=== PATIENT | female | born 1985 | race African-American/Black ===

== ENCOUNTER 2019-03-04 16:46 | Observation (INO) | payer MEDICAID ==
[~2019-03-04] VITALS: Ht 162.6 cm; Wt 97.1 kg
[2019-03-04] MEDS ORDERED: ACETAMINOPHEN 325MG TABLET PO NR (17:30)
[2019-03-04] MEDS: LACTATED RINGERS 1,000 ML IV SCH ×2 (17:48→20:08)
[2019-03-04 18:12] LABS: BASOPHILS % 0.1 % (0.0-2.0); EOSINOPHILS % 0.9 % (0.0-5.0); HEMATOCRIT. 36.6 % (36.0-48.0); HEMOGLOBIN. 11.9 g/dL (12.0-16.0); LYMPHOCYTES % 7.6 % (20.0-50.0); MEAN CORPUSCULAR HEMOGLOBIN 25.1 pg (28.0-32.0); MEAN CORPUSCULAR VOLUME 77.7 fL (81.0-99.0); MEAN PLATELET VOLUME 9.4 fl (7.4-10.4); MONOCYTES % 5.3 % (2.0-8.0); NEUTROPHILS % 86.1 % (40.0-76.0); PLATELET 205 x1000/uL (130-400); RED BLOOD CELL COUNT 4.72 mill/uL (4.2-5.4); RED CELL DISTRIBUTION WIDTH 15.5 % (11.6-14.6)
[2019-03-04 18:13] LABS: CHLORIDE 107 mEq/L (98-107)
[2019-03-04 18:53] LABS: CLARITY URINE CLOUDY (CLEAR); COLOR URINE DARK YELLOW (YELLOW); KETONES URINE 3+ (NEGATIVE); LEUKOCYTE ESTERASE URINE NEGATIVE (NEGATIVE); NITRITE URINE NEGATIVE (NEGATIVE); OCCULT BLOOD URINE NEGATIVE (NEGATIVE); PH URINE 5.5 (4.5-8.0); PROTEIN URINE 1+ (NEGATIVE); SPECIFIC GRAVITY URINE 1.032 (1.005-1.030); UROBILINOGEN URINE 0.2 E.U./dL (0.2-1.0)
[2019-03-04] MEDS ORDERED: PREN1TAB78 MT (22:44)
[2019-03-04] MEDS ORDERED: FERR-71 MT (22:44)
== END 2019-03-04 23:05 | disposition home or self-care (01) ==
LOC: 8 EST LDRP 16:46
PROVIDERS: ADMIT Obstetrics & Gynecology; ATTEND Obstetrics & Gynecology
DX: O21.2 Late vomiting of pregnancy (principal); O26.893 Other specified pregnancy related conditions, third trimester; R19.7 Diarrhea, unspecified; R10.9 Unspecified abdominal pain; Z3A.33 33 weeks gestation of pregnancy
CPT/HCPCS: 36415; 80053; 81003; 85025; 96360; 96361; G0378

== ENCOUNTER 2019-03-09 18:51 | Observation (INO) | payer MEDICAID ==
[~2019-03-09 18:51] MED LIST: FERR-71 MT; PREN1TAB78 MT
[2019-03-09 21:08] LABS: CLARITY URINE CLEAR (CLEAR); COLOR URINE YELLOW (YELLOW); KETONES URINE NEGATIVE (NEGATIVE); LEUKOCYTE ESTERASE URINE NEGATIVE (NEGATIVE); NITRITE URINE NEGATIVE (NEGATIVE); OCCULT BLOOD URINE NEGATIVE (NEGATIVE); PH URINE 6.5 (4.5-8.0); PROTEIN URINE NEGATIVE (NEGATIVE); SPECIFIC GRAVITY URINE 1.015 (1.005-1.030); UROBILINOGEN URINE 0.2 E.U./dL (0.2-1.0)
[2019-03-09 21:08] LABS: CHLORIDE 111 mEq/L (98-107)
[2019-03-09 21:10] LABS: BASOPHILS % 0.3 % (0.0-2.0); EOSINOPHILS % 2.2 % (0.0-5.0); HEMATOCRIT. 34.3 % (36.0-48.0); HEMOGLOBIN. 10.9 g/dL (12.0-16.0); LYMPHOCYTES % 21.6 % (20.0-50.0); MEAN CORPUSCULAR HEMOGLOBIN 24.8 pg (28.0-32.0); MEAN CORPUSCULAR VOLUME 77.9 fL (81.0-99.0); MEAN PLATELET VOLUME 9.1 fl (7.4-10.4); MONOCYTES % 7.8 % (2.0-8.0); NEUTROPHILS % 68.1 % (40.0-76.0); PLATELET 191 x1000/uL (130-400); RED CELL DISTRIBUTION WIDTH 15.5 % (11.6-14.6)
[2019-03-09 21:15] LABS: D-DIMER 0.71 mg/L FEU (<0.50); INR 0.9; PARTIAL THROMBOPLASTIN TIME 32.3 sec (23.4-31.0)
[2019-03-09] MEDS ORDERED: RANI150T7 MT (22:20)
== END 2019-03-09 22:40 | disposition home or self-care (01) ==
LOC: 8 EST LDRP 18:51
PROVIDERS: ADMIT Obstetrics & Gynecology; ATTEND Obstetrics & Gynecology
DX: O26.893 Other specified pregnancy related conditions, third trimester (principal); M25.552 Pain in left hip; M25.551 Pain in right hip; M79.605 Pain in left leg; M79.604 Pain in right leg; M79.602 Pain in left arm; M79.601 Pain in right arm; M79.642 Pain in left hand; M79.641 Pain in right hand; M25.572 Pain in left ankle and joints of left foot; M25.571 Pain in right ankle and joints of right foot; M79.10 Myalgia, unspecified site; Z3A.33 33 weeks gestation of pregnancy
CPT/HCPCS: 36415; 80053; 81003; 84550; 85025; 85379; 85384; 85610; 85730; 99281; G0378

== ENCOUNTER 2019-03-09 23:10 | Emergency (ER) | payer MEDICAID ==
[~2019-03-09] VITALS: Ht 162.6 cm; Wt 95.0 kg
[~2019-03-09 23:10] MED LIST changes: +RANI150T7 MT
[2019-03-10] MEDS ORDERED: SODIUM CHLORIDE 0.9% 1,000 ML IV ONE (00:14)
[2019-03-10] MEDS ORDERED: ONDANSETRON HCL 4MG/2ML INJ IV STA (00:28)
[2019-03-10] MEDS ORDERED: MORPHINE SULFATE 4 MG/ML CPJ (NOT FOR IM USE) IV STA (00:28)
[2019-03-10 02:01] LABS: BASOPHILS % 0.9 % (0.0-2.0); EOSINOPHILS % 2.5 % (0.0-5.0); HEMATOCRIT. 31.8 % (36.0-48.0); HEMOGLOBIN. 10.2 g/dL (12.0-16.0); LYMPHOCYTES % 21.9 % (20.0-50.0); MEAN CORPUSCULAR HEMOGLOBIN 25.3 pg (28.0-32.0); MEAN CORPUSCULAR VOLUME 78.7 fL (81.0-99.0); MEAN PLATELET VOLUME 8.8 fl (7.4-10.4); MONOCYTES % 6.6 % (2.0-8.0); NEUTROPHILS % 68.1 % (40.0-76.0); PLATELET 189 x1000/uL (130-400); RED BLOOD CELL COUNT 4.04 mill/uL (4.2-5.4); RED CELL DISTRIBUTION WIDTH 15.3 % (11.6-14.6)
[2019-03-10 02:06] LABS: CHLORIDE 110 mEq/L (98-107)
[2019-03-10 02:16] LABS: CREATINE KINASE 137 IU/L (26-192)
[2019-03-10 03:30] VITALS: BP 141/93
== END 2019-03-10 03:35 | disposition home or self-care (01) ==
LOC: ER 23:10
DX: O9A.213 Injury, poisoning and certain other consequences of external causes complicating pregnancy, third trimester (principal); S46.912A Strain of unspecified muscle, fascia and tendon at shoulder and upper arm level, left arm, initial encounter; S46.911A Strain of unspecified muscle, fascia and tendon at shoulder and upper arm level, right arm, initial encounter; Z3A.34 34 weeks gestation of pregnancy; X58.XXXA Exposure to other specified factors, initial encounter; Y93.89 Activity, other specified; Y92.89 Other specified places as the place of occurrence of the external cause; Y99.8 Other external cause status
CPT/HCPCS: 36415; 80053; 82550; 83605; 83690; 85025; 85651; 86140; 93005; 93970; 96361; 96374; 96375; 99284; J2270; J2405; J7030

== ENCOUNTER 2019-06-26 11:18 | Emergency (ER) | payer MEDICAID, OTHER ==
[~2019-06-26] VITALS: Ht 165.1 cm; Wt 99.0 kg
[2019-06-26 11:27] VITALS: BP 152/91
[2019-06-26] MEDS ORDERED: IBUPROFEN 800MG TABLET PO ONE (12:00)
== END 2019-06-26 12:41 | disposition home or self-care (01) ==
LOC: ER 11:31
DX: M25.532 Pain in left wrist (principal); F17.210 Nicotine dependence, cigarettes, uncomplicated; Z71.6 Tobacco abuse counseling; Z98.890 Other specified postprocedural states
CPT/HCPCS: 73110; 99283; 99406